=== PATIENT | female | born 1970 | race Caucasian/White ===

== ENCOUNTER 2018-11-18 14:12 | Emergency (ER) | payer BC ==
--- NOTE | 2018-11-18 14:21 | EDM.PDOC ---
ED HPI GENERAL MEDICAL PROBLEM - General Stated Complaint: LABS ARE LOW Time Seen by Provider: 11/18/18 14:12 Source of Information: Reports: Patient, Family History Limitations: Reports: No Limitations - History of Present Illness INITIAL COMMENTS - FREE TEXT/NARRATIVE: 48 y.o.w.f with a H/O anemia due to iron deficiency, was seen in the clinic and sent to the ed because her low HGB level of 6.8. Pt was told in the distant past to take iron tablets but she did not come to it so far. Pt feels generally weak but can still function well a work. No N/V/D no Dizziness, no H/O fall, nl menstrual period, no blood in stool or urine. Pt drinks a 6 pack every day fo r many years, no hard liquor. Pt eats regular food, does not take ant vitamins etc. No other acute med issues. BP 136/75 RR 18 Pulse ox 100% on RA Pulse67 Temp 36.2 + Onset Date: 10/14/18 Onset Time: 08:00 Duration: Week(s):, Intermittent Location: Reports: Generalized (weakness at times) Severity: Mild (weakness) Improves with: Reports: Rest Worsens with: Reports: Movement Context: Reports: Other Associated Symptoms: Reports: Weakness (generalized) - Related Data Allergies Allergy/AdvReac Type Severity Reaction Status Date / Time cephalexin Allergy Anaphylactic Verified 11/18/18 14:20 Shock Home Meds: Home Meds ALPRAZolam [Xanax] 0.5 mg PO DAILY PRN 11/18/18 [History] FLUoxetine HCl [Prozac] 20 mg PO DAILY 11/18/18 [History] Ferrous Sulfate 325 mg PO TID #270 tablet 11/18/18 [Rx] diphenhydrAMINE [Benadryl] 25 mg PO BEDTIME PRN 11/18/18 [History] ED ROS GENERAL - Review of Systems Review Of Systems: See Below Constitutional: Reports: Weakness HEENT: Reports: No Symptoms Respiratory: Reports: No Symptoms Cardiovascular: Reports: No Symptoms Endocrine: Reports: No Symptoms GI/Abdominal: Reports: No Symptoms : Reports: No Symptoms Musculoskeletal: Reports: No Symptoms Skin: Reports: No Symptoms Neurological: Reports: No Symptoms Psychiatric: Reports: No Symptoms Hematologic/Lymphatic: Reports: No Symptoms Immunologic: Reports: No Symptoms ED EXAM, NEURO - Physical Exam Exam: See Below Exam Limited By: No Limitations General Appearance: Alert, WD/WN, Mild Distress (gen weakness) Eye Exam: Bilateral Eye: Normal Inspection Ears: Normal External Exam Nose: Normal Inspection Throat/Mouth: Normal Inspection Head Exam: Atraumatic, Normocephalic Neck: Normal Inspection, Supple, Non-Tender Respiratory/Chest: No Respiratory Distress Cardiovascular: Normal Peripheral Pulses GI/Abdominal: Normal Bowel Sounds, Soft, Non-Tender, No Organomegaly, Pelvis Stable (Female) Exam: Deferred Rectal (Female) Exam: Deferred Neurological: Alert, Normal Mood/Affect, Normal Dorsiflexion Back Exam: Normal Inspection Extremities: Normal Inspection Psychiatric: Normal Affect Skin Exam: Warm, Dry, Intact, Normal Color, No Rash Course - Vital Signs Text/Narrative:: 48 y.o.w.f with a H/O anemia due to iron deficiency, was seen in the clinic and sent to the ed because her low HGB level of 6.8. Pt was told in the distant past to take iron tablets but she did not come to it so far. Pt feels generally weak but can still function well a work. No N/V/D no Dizziness, no H/O fall, nl menstrual period, no blood in stool or urine. Pt drinks a 6 pack every day fo r many years, no hard liquor. Pt eats regular food, does not take ant vitamins etc. No other acute med issues. BP 136/75 RR 18 Pulse ox 100% on RA Pulse67 Temp 36.2 PE: WNWD W F in NAD, Pt brought the labs from clinic which showed ir0n deficiency anemia Labs: HGB was 6.8 B 12 was 394 Iron studies were pending. Impression: Iron deficiency anemia. H/O ETOH abuse Tx: none Reexam; Pt was doing fine in the ED Plan: D/C with instructions Last Recorded V/S: Last Vital Signs Temp 36.2 C 11/18/18 14:16 Pulse 73 11/18/18 16:41 Resp 18 11/18/18 16:41 BP 129/86 11/18/18 16:41 Pulse Ox 100 11/18/18 16:41 - Orders/Labs/Meds Orders: Active Orders 24 hr Category Date Time Status FERRITIN, SERUM Stat Lab 11/18/18 14:28 Received IRON AND TIBC Stat Lab 11/18/18 14:28 Received PATIENT RETYPE [BBK] Stat Lab 11/18/18 14:28 Results RETICULOCYTE COUNT Stat Lab 11/18/18 14:28 Received TYPE AND SCREEN [BBK] Stat Lab 11/18/18 14:28 Results Labs: Laboratory Tests 11/18/18 11/18/18 11/18/18 Range/Units 14:22 14:28 14:28 Hgb 7.1 L (11.5-15.5) g/dL Vitamin B12 339 (193-986) pg/mL Blood Type B POSITIVE Gel Antibody Screen Negative Departure - Departure Time of Disposition: 16:28 Disposition: Home, Self-Care 01 Condition: Good Clinical Impression: H/O ETOH abuse Iron (Fe) deficiency anemia Qualifiers: Iron deficiency anemia type: inadequate dietary iron intake Qualified Code(s): D50.8 - Other iron deficiency anemias - Discharge Information Prescriptions: Ferrous Sulfate 325 mg PO TID #270 tablet Instructions: Preventing Iron Deficiency Anemia, Adult Referrals: Felicia Sanders NP [Primary Care Provider] - Forms: ED Department Discharge Additional Instructions: Please take the iron pills as recommended (Prescription) 3 times a day , Thiamine 100mg daily, Vitamin C one tablet daily. Multivitamin one tablet daily and Folic Acid 1 mg daily. Please take those medications for one month and return to clinic for blood levels to be rechecked. Please reduce/avoid ETOH use. Please come back if your symptoms get worse acutely. Increase fiber in diet as iron may cause constipation. - My Orders Last 24 Hours: My Active Orders 11/18/18 14:28 FERRITIN, SERUM Stat IRON AND TIBC Stat PATIENT RETYPE [BBK] Stat RETICULOCYTE COUNT Stat TYPE AND SCREEN [BBK] Stat - Assessment/Plan Last 24 Hours: My Active Orders 11/18/18 14:28 FERRITIN, SERUM Stat IRON AND TIBC Stat PATIENT RETYPE [BBK] Stat RETICULOCYTE COUNT Stat TYPE AND SCREEN [BBK] Stat
[2018-11-20 08:09] LABS: IRON BIND.CAP.(TIBC) 377 ug/dL (250-450); IRON SATURATION 4 % (15-55); IRON, SERUM 16 ug/dL (27-159); UIBC 361 ug/dL (131-425)
== END 2018-11-18 16:56 | disposition home or self-care (01) ==
LOC: FB.ED 14:12
DX: D50.8 Other iron deficiency anemias (principal); Z88.1 Allergy status to other antibiotic agents; Z79.899 Other long term (current) drug therapy
CPT/HCPCS: 36415; 82607; 82728; 83540; 83550; 85018; 86850; 86900; 86901; 99284

== ENCOUNTER 2025-02-20 01:54 | Emergency (ER) | payer BC ==
[2025-02-20 02:26] LABS: BASOPHILS ABSOLUTE AUTO 0.1 x10-3/uL (0.0-0.1); BASOPHILS PERCENT AUTO 1.0 % (0.2-1.5); EOSINOPHILS ABSOLUTE AUTO 0.1 x10-3/uL (0.0-0.8); EOSINOPHILS PERCENT AUTO 1.3 % (0.6-8.1); LYMPHOCYTES ABSOLUTE AUTO 2.6 x10-3/uL (1.0-4.4); LYMPHOCYTES PERCENT AUTO 44.9 % (18.4-52.1); MEAN PLATELET VOLUME 7.3 fL (7.1-12.4); MONOCYTES ABSOLUTE AUTO 0.5 x10-3/uL (0.3-1.0); MONOCYTES PERCENT AUTO 8.5 % (4.4-15.7); NEUTROPHILS ABSOLUTE AUTO 2.6 x10-3/uL (1.5-6.3); NEUTROPHILS PERCENT AUTO 44.3 % (30.8-76.2); PLATELET COUNT,PLT 237 x10(3)uL (151-488); RED BLOOD CELL COUNT 3.59 x10(6)uL (3.60-5.20); RED CELL DISTRIBUTION WIDTH 16.0 % (12.3-16.5); WHITE BLOOD CELL COUNT,WBC 5.8 x10-3/uL (3.0-10.3)
[2025-02-20 02:36] LABS: BLOOD UREA NITROGEN,BUN 8 mg/dL (7-18); CARBON DIOXIDE,CO2 31 mmol/L (21-32); CHLORIDE,CL 103 mmol/L (100-110); CREATININE 0.5 mg/dL (0.55-1.02); EST CRCL DRUG DOSING (CG) 105.16 mL/min; ESTIMATED GFR 111 mL/min (>60); GLUCOSE RANDOM 118 mg/dL (80-116); POTASSIUM,K 4.0 mmol/L (3.5-5.3); SODIUM,NA 142 mmol/L (135-145)
[2025-02-20 02:43] LABS: A/G RATIO 1.3; ALANINE AMINOTRANSFERASE,ALT 28 U/L (12-36); ASPARTATE AMNIOTRANSFERASE,AST 42 IU/L (5-25); BILIRUBIN TOTAL 0.5 mg/dL (0.1-1.3); PROTEIN TOTAL,TP 7.0 g/dL (6.0-8.0)
[2025-02-20 02:47] LABS: ETHANOL BLOOD MEDICAL 0.17 % (<0.03)
[2025-02-20 04:25] LABS: GLUCOSE,URINE NORMAL (NORMAL); OCCULT BLOOD,URINE NEGATIVE (NEGATIVE)
[2025-02-20 04:30] LABS: APPEARANCE,URINE CLEAR (CLEAR); SQUAMOUS EPITHELIAL CELLS,UR FEW (NS,R,O)
== END 2025-02-20 04:53 | disposition home or self-care (01) ==
LOC: FB.ED 01:54
DX: I95.1 Orthostatic hypotension (principal); K21.9 Gastro-esophageal reflux disease without esophagitis; Z88.1 Allergy status to other antibiotic agents; Z79.899 Other long term (current) drug therapy; E86.0 Dehydration; S01.01XA Laceration without foreign body of scalp, initial encounter
CPT/HCPCS: 36415; 70450; 72125; 80053; 80307; 81001; 83605; 83735; 84484; 85025; 86140; 93005; 96360; 99284; J7030